=== PATIENT | female | born 1945 | race Caucasian/White ===

== ENCOUNTER 2023-02-24 16:45 | Inpatient (IN) | payer OTHER ==
[2023-02-24] MEDS ORDERED: MORPHINE ORAL CONCENTRATE 20 MG/ML - 30ML BOTTLE PO PRN (17:37)
[2023-02-24] MEDS ORDERED: morphine SULFATE 10 MG/5 ML UNIT-DOSE CUP PO PRN ×2 (17:59→18:48)
[2023-02-24] MEDS ORDERED: FENTANYL PATCH WASTE TD PRN (18:48)
[2023-02-25] MEDS ORDERED: morphine SULFATE 10 MG/5 ML UNIT-DOSE CUP ONE (10:04)
[2023-02-26 05:49] VITALS: BMI 15.9
[2023-02-26 07:16] VITALS: RESP 18
[2023-02-26 22:04] VITALS: BP 118/57; PULSE 129; TEMP 98.5
[2023-02-27] MEDS ORDERED: fentaNYL 100mcg/hr PATCH.TD72 TD SCH (09:00)
== END 2023-02-26 21:00 | disposition hospice, inpatient (51) | DRG 951 ==
LOC: JER 16:45 → JERBED 17:38 → OBSVTOIN 02-25 13:36 → J7W 02-25 23:20
PROVIDERS: ADMIT Internal Medicine; ATTEND Internal Medicine
DX: Z51.5 Encounter for palliative care (principal); C18.9 Malignant neoplasm of colon, unspecified; C34.90 Malignant neoplasm of unspecified part of unspecified bronchus or lung; R64 Cachexia; Z68.1 Body mass index [BMI] 19.9 or less, adult; F03.90 Unspecified dementia, unspecified severity, without behavioral disturbance, psychotic disturbance, mood disturbance, and anxiety
CPT/HCPCS: 87635; 99285-25; G0378